=== PATIENT | female | born 1955 | race Caucasian/White ===

== ENCOUNTER 2022-09-09 14:38 | Outpatient (CLI) | payer MEDICARE, OTHER, SELFPAY ==
--- NOTE | 2022-09-09 15:00 | CRLHL7_ITS ---
For Patients: As a result of the Century Cures Act, medical imaging exams and procedure reports are released immediately into your electronic medical record. You may view this report before your referring provider. If you have questions, please contact your health care provider. DXA BONE MINERAL DENSITY STUDY Reason for exam: Asymptomatic menopausal state. Current height (in): 65. Weight (lb): 212. Menopause age: 54. Ethnicity: White. 1. Have you had a previous hip or vertebral fracture? No. 2. Have you had any fractures during your adult life which did not result from significant trauma (e.g., auto accident)? Yes. 3. Did either of your parents have a hip fracture? No. 4. Do you smoke? No. 5. Have you ever taken Glucocorticoids? No. 6. Do you have rheumatoid arthritis? No. 7. Do you have secondary osteoporosis? No. 8. Do you drink 3 or more alcoholic drinks per day? No. 9. Are you being treated for osteoporosis? No. 10. Have you ever taken any of the following medications: Actonel, Evista, Fosamax, Miacalcin, Reclast, Boniva, Forteo, HRT (i.e., estrogen/hormone therapy), Protelos, Prolia, Vitamin D, Calcium, other ??? please specify. ANSWER: Yes, vitamin D and calcium. 11. Do you have any of the following medical conditions: Anorexia or bulimia, asthma or emphysema, end stage renal disease, hyperparathyroidism, any seizure disorders, cancer, inflammatory bowel diseases, hysterectomy, other ??? please specify. ANSWER: No. 12. What was your maximum height (inches)? 65. 13. Do you perform weight bearing exercise regularly? No. 14. Do you regularly consume dairy products? Yes. 15. Do you drink caffeinated beverages? Yes. If female: 16. At what age did your period start? 16. 17. Are you premenopausal? No. 18. How many full-term pregnancies have you had? 2. 19. Have you ever missed your period for more than 6 months in a row (not including or menopause)? No. TECHNIQUE: Bone mineral density study was performed using the [employer]. FINDINGS: The results of the study expressed as bone mineral density (BMD) are as follows: Lumbar spine L1 to L4: BMD: 0.912 g/cm2. T-score: -1.2. Z-score: 0.6 Neck Left: BMD: 0.751 g/cm2. T-score: -0.9. Z-score: 0.7 Right: BMD: 0.779 g/cm2. T-score: -0.6. Z-score: 0.9 Total Left: BMD: 0.880 g/cm2. T-score: -0.5. Z-score: 0.8 Right: BMD: 0.950 g/cm2. T-score: 0.1. Z-score: 1.3 IMPRESSION: Osteopenia. FRAX 10-year Fracture Risk Major Osteoporotic Fracture: 12% Hip Fracture: 0.8% Reported Risk Factors: [place] () Neck BMD=0.751, BMI= 35.3, previous fracture Anthony Parks M.D. Diagnostic/Nuclear Medicine Radiologist [email or web address] RICKIE/[email or web address] goins/Dictated by: Walker Lovett MD @ 09/09/2022 3:41:00 PM (Electronically Signed)
== END 2022-09-09 14:39 | disposition home or self-care (01) ==
PROVIDERS: PCP Family Medicine; Visit Provider Family Medicine
DX: Z78.0 Asymptomatic menopausal state (principal); M85.89 Other specified disorders of bone density and structure, multiple sites
CPT/HCPCS: 77080

== ENCOUNTER 2022-09-18 14:15 | Outpatient (CLI) | payer MEDICARE, OTHER, SELFPAY ==
--- NOTE | 2022-09-18 14:40 | CRLHL7_ITS ---
For Patients: As a result of the Cures Act, medical imaging exams and procedure reports are released immediately into your electronic medical record. You may view this report before your referring provider. If you have questions, please contact your health care provider. BILATERAL SCREENING MAMMOGRAM WITH COMPUTER-AIDED DETECTION AND TOMOSYNTHESIS TECHNIQUE: CC and MLO views were obtained. These mammographic images have been obtained using full-field digital technique. These mammographic images were interpreted with the benefit of computer-aided detection. Breast Tomosynthesis was used in this interpretation. COMPARISON FILM: 08/29/21, 07/05/20, 04/26/19. FINDINGS: There are scattered areas of fibroglandular density IMPRESSION: There is no radiographic evidence for malignancy. ASSESSMENT: BI-RADS Category 1: Negative RECOMMENDATION: Routine screening mammogram in 1 year. A lay language report of this examination will be provided to the patient. Jack Adame M.D. Diagnostic Radiologist [email or web address] PEGGY/[email or web address] / be/Dictated by: Jack Adame MD @ 09/21/2022 8:39:00 AM (Electronically Signed)
== END 2022-09-18 14:16 | disposition home or self-care (01) ==
LOC: MAMMO 14:17
PROVIDERS: PCP Family Medicine; Visit Provider Family Medicine
DX: Z12.31 Encounter for screening mammogram for malignant neoplasm of breast (principal)
CPT/HCPCS: 77063; 77067

== ENCOUNTER 2023-09-01 08:00 | Outpatient (CLI) | payer MEDICARE, OTHER, SELFPAY ==
--- OUTSIDE RECORDS SUMMARY | 2023-09-01 14:11 | XMS_ITS | Clinical Summary ---
Author Organization [facility] [employer] [facility] Address [place], [place] [address] Care Team Providers Care Ensemble Member Name Role Phone Pcp, No Primary Care Provider Unavailabl e Allergies Active Allergy Reactions Criticality Noted Date Comments Valacyclovir Rash 08/30/2006 Medications Medication Sig Dispensed Refills Start Date End Date Status DOXYCYCLINE HYCLATE 20 MG CAP one daily 0 10/12/2007 Active cyclobenzaprine (FLEXERIL) 10 mg tablet Take 1 tablet by mouth 3 times daily if needed for Muscle Spasm. And Migraine 30 tablet 6 08/23/2012 Active aspirin-caffeine- butalbital, 325-40-50 mg, (FIORINAL) capsule .TAKE 1 CAPSULE BY MOUTH EVERY 4 HOURS NEEDED FOR HEADACHE. NOT TO EXCEED 6 CAPSULES PER DAY 30 capsule 1 10/27/2012 Active HYDROcodone-aceta minophen, 5-325 mg, (NORCO) per tablet Take 1-2 tablets by mouth every 4 hours if needed for Pain. Max acetaminophen dose: 4000mg in 24 hrs. 30 tablet 0 03/20/2013 Active nadolol (CORGARD) 40 mg tablet One oral twice daily 60 tablet 11 06/05/2013 Active gabapentin (NEURONTIN) 300 mg capsule Take 1 capsule by mouth once daily. [facility] prescribed 0 07/04/2016 Active cholecalciferol (VITAMIN D-3) 2,000 unit capsule Take 1 capsule by mouth once daily. 0 07/04/2016 Active codeine-guaiFENes in (ROBITUSSIN AC) 10-100 mg/5 mL liquidIndications :Cough Take 5-10 mL by mouth every 4 hours if needed for Cough. 180 mL 1 07/04/2016 Active VENTOLIN HFA 90 mcg/actuation inhaler INHALE ONE PUFF BY MOUTH EVERY 4 HOURS NEEDED 0 07/09/2016 Active Active Problems Problem Noted Date Diagnosed Date Diverticulitis of colon with perforation 013 Pain medication agreement 05/27/2011 Migraine headache 12/09/2009 Esophageal reflux 09/10/2006 Overview: Gastroesophageal Reflux Immunizations Name Administration Dates Next Due Influenza, IIV3 (Age >=3 years) 01/20/2006 Tdap 09/10/2006 Family History Medical History Relation Name Comments Other Daughter ovarian ca and epidymoma Other Mother osteoporosis Relation Name Status Comments Daughter Father Mother Social History Tobacco Use Types Packs/Day Years Used Date Smoking Tobacco: Never Smokeless Tobacco: Never Tobacco Cessation:Counseling Given: Yes Alcohol Use Standard Drinks/Week Comments No 0 (1 standard drink = 0.6 oz pur e alcohol) Sex and Gender Information Value Date Recorded Sex Assigned at Not on file Gender Identity Not on file Sexual Orientation Not on file Obstetrics History Last Filed Vital Signs Vital Sign Reading Time Taken Comments Blood Pressure 104/69 08/10/2016 3:34 PM CDT Pulse 66 08/10/2016 3:34 PM CDT Temperature 36.4 ??C (97.6 ??F) 08/10/2016 3:34 PM CD T Respiratory Rate - - Oxygen Saturation 98% 08/10/2016 3:34 PM CDT Inhaled Oxygen Concentration - - Weight 95.5 kg (210 lb 9.6 oz) 08/10/2016 3:34 P M CDT Height 164 cm (5' 4.57) 08/10/2016 3:34 PM CDT Body Mass Index 35.52 08/10/2016 3:34 PM CDT Plan of Treatment Health Maintenance Due Date Last Done Comments Hepatitis C screening for ag e 18-79 1974 Zoster (shingles) series for age 50+ (1 of 2) 2006 Mammogram for age 45-75 01/30/2015 01/31/20 14, 01/12/2013, 01/12/2013, Additional history exists Tetanus booster 09/10/2016 09/10/2006 Lipids for age 45-75 01/06/2017 01/07/2012, 01/01/2011, 12/04/2008 Depression screening for age 12+ 07/04/2017 07/05/19 17 BMI (ht and wt on same day) for age 18+ 08/10/2017 08/10/2016, 07/13/2016, 07/07/2016, Additional history exists Colonoscopy through age 75 03/05/2019 03/05/2014, DEXA/DXA scan for age 65+ 2021 12/04/2008 Pneumococcal series for age 65+ (1 of 1 - PCV) 2021 COVID-19 vaccine series (1 - 2022-24 season) 2022 Influenza for age 65+ 11/21/2023 01/20/2006 Tdap Completed 09/10/2006 Procedures Procedure Name Priority Date/Time Associated Diagnosis Comments SCAN-COLONOSCOPY 03/05/2014 12:0 0 AM ANESTHETIST SCAN-MAMMOGRAPHY REPORT 01/30/2014 12:00 PM ANESTHETIST LIPID PANEL W REFLEX MEASURED LDL Routine 01/07/2012 7:26 AM CDT Pure hypercholesterolemia XR DXA BONE DENSITY 2 SITES AXIAL Routine 12/04/2008 8:30 AM CDT Screening for Osteoporosis from Last 3 Months or Most Recently Relevant to Health Maintenance Results * SCAN-COLONOSCOPY (03/05/2014 12:00 AM ANESTHETIST) Narrative 03/05/2014 12:00 AM ANESTHETIST Procedure Note Scanner - 03/05/2014 12:00 AM CST Scanner OTHER * SCAN-MAMMOGRAPHY REPORT (01/30/2014 12:00 PM ANESTHETIST) Anatomical Region Laterality Modality Other Narrative 02/01/2014 11:43 AM ANESTHETIST Procedure Note Scanner - 01/30/2014 12:00 PM CST Scanner OTHER * (ABNORMAL) LIPID PANEL W REFLEX MEASURED LDL (01/07/2012 7:26 AM CDT) CHOLESTEROL,TOTAL 221(H) 100 - 199 mg/dL 01/07/2012 8:14 AM CDT [facility] TRIGLYCERIDES 189(H) <150 mg/dL 01/07/2012 8:14 AM CDT [facility] HDL CHOLESTEROL 39(L) >40 mg/dL 2 8:14 AM CDT [facility] CHOL/HDL RATIO 5.67(H) <4.50 01/07/2012 8:14 AM CDT [facility] LDL CHOLESTEROL 144(H) <=130 mg/dL 01/07/2012 8:14 AM CDT [facility] PATIENT STATUS FASTING 01/07/2012 8:14 AM CDT [facility] Blood specimen (specimen) BLOOD SPECIMEN / Unknown 01/07/2012 7:26 AM CDT 01/07/2012 7:26 AM CDT Jack Suresh MD CHEMISTRY [facility] [address] [place] [address] * XR DEXA BONE DENSITY 2 SITES (12/04/2008 8:30 AM CDT) Anatomical Region Laterality Modality Spine, HIPS, HIPL, HIPR Other 12/04/2008 8:30 AM CDT Narrative 12/07/2008 7:08 PM CDT Please see scanned document for results of this study. Procedure Note Bere Truong - 12/08/2008 Please see scanned document for results of this study. Jack Suresh MD DEXA from Last 3 Months or Most Recently Relevant to Health Maintenance Care Teams Ensemble Member Relationship Specialty Start Date End Date Pcp, No . PCP - General 08/12/20
== END 2023-09-01 08:01 | disposition home or self-care (01) ==
LOC: NFLDREF 14:10
PROVIDERS: PCP Family Medicine; Referring Provider Family Medicine; Visit Provider Family Medicine
DX: Z01.419 Encounter for gynecological examination (general) (routine) without abnormal findings (principal); E78.5 Hyperlipidemia, unspecified; R79.89 Other specified abnormal findings of blood chemistry; R73.03 Prediabetes; R68.82 Decreased libido; R74.01 Elevation of levels of liver transaminase levels; M81.0 Age-related osteoporosis without current pathological fracture; R53.83 Other fatigue
CPT/HCPCS: 80053; 80061; 80074; 82306; 82977

== ENCOUNTER 2023-09-08 07:50 | Outpatient (CLI) | payer MEDICARE, OTHER, SELFPAY ==
--- OUTSIDE RECORDS SUMMARY | 2023-09-08 07:53 | XMS_ITS | Clinical Summary ---
Author Organization [facility] [facility] Address [place], [place] [address] Care Team Providers Care Courier Delivery Driver Name Role Phone Pcp, No Primary Care [...] Diagnosis Comments SCAN-COLONOSCOPY 03/05/2014 12:0 0 AM DRY BOX OPERATOR SCAN-MAMMOGRAPHY REPORT 01/30/2014 12:00 PM DRY BOX OPERATOR LIPID PANEL W REFLEX MEASURED LDL Routine 01/07/2012 7:26 AM CDT Pure hypercholesterolemia XR DXA BONE DENSITY 2 SITES AXIAL Routine 12/04/2008 8:30 AM CDT Screening for Osteoporosis from Last 3 Months or Most Recently Relevant to Health Maintenance Results * SCAN-COLONOSCOPY (03/05/2014 12:00 AM DRY BOX OPERATOR) Narrative 03/05/2014 12:00 AM DRY BOX OPERATOR Procedure Note Scanner - 03/05/2014 12:00 AM CST Scanner OTHER * SCAN-MAMMOGRAPHY REPORT (01/30/2014 12:00 PM DRY BOX OPERATOR) Anatomical Region Laterality Modality Other Narrative 02/01/2014 11:43 AM DRY BOX OPERATOR Procedure Note Scanner - 01/30/2014 12:00 PM CST Scanner OTHER * (ABNORMAL) LIPID PANEL W REFLEX MEASURED LDL (01/07/2012 7:26 AM CDT) CHOLESTEROL,TOTAL 221(H) 100 - 199 mg/dL 01/07/2012 8:14 AM CDT [facility] TRIGLYCERIDES 189(H) <150 mg/dL 01/07/2012 8:14 AM CDT [facility] HDL CHOLESTEROL 39(L) >40 mg/dL 2 8:14 AM CDT [facility] CHOL/HDL RATIO 5.67(H) <4.50 01/07/2012 8:14 AM CDT [facility] LDL CHOLESTEROL 144(H) <=130 mg/dL 01/07/2012 8:14 AM CDT [facility] PATIENT STATUS FASTING 01/07/2012 8:14 AM CDT [facility] Blood specimen (specimen) BLOOD SPECIMEN / Unknown 01/07/2012 7:26 AM CDT 01/07/2012 7:26 AM CDT Jack Suresh MD CHEMISTRY [facility] [address] [place] [address] * XR DEXA BONE DENSITY 2 SITES [...] Recently Relevant to Health Maintenance Care Teams Courier Delivery Driver Relationship Specialty Start Date End Date Pcp, No . PCP - General 08/12/20
== END 2023-09-08 07:51 | disposition home or self-care (01) ==
PROVIDERS: PCP Family Medicine; Visit Provider Family Medicine
DX: R74.01 Elevation of levels of liver transaminase levels (principal); R53.83 Other fatigue; Z13.29 Encounter for screening for other suspected endocrine disorder
CPT/HCPCS: 80053; 84443

== ENCOUNTER 2023-10-06 13:50 | Outpatient (CLI) | payer MEDICARE, OTHER, SELFPAY ==
--- OUTSIDE RECORDS SUMMARY | 2023-10-06 13:53 | XMS_ITS | Clinical Summary ---
Author Organization [facility] Address [place], [place] [address] Care Team Providers Care Bottomer Operator Name Role Phone Pcp, No Primary Care [...] 12/09/2009 Esophageal reflux 09/10/2006 Overview: Gastroesophageal Reflux Encounters Date Type Department Care Team Description 09/29/2023 Lab Requisition [facility] [phone] Anita Wayne MD 09/08/2023 Lab Requisition [facility] [phone] Jessica Miller MD from Last 3 Months Immunizations Name Administration Dates Next Due Influenza, [...] 1 - PCV) 2021 COVID-19 vaccine series ( - 2022- season) 2022 Influenza for age 65+ 11/21/2023 01/20/2006 Tdap Completed 09/10/2006 Procedures Procedure Name Priority Date/Time Associated Diagnosis Comments LAB TRACKING EVENT Routine 09/28/2023 12:00 PM CDT PATH TISSUE EXAM Routine 09/28/2023 12:0 0 PM CDT LAB TRACKING EVENT Routine 09/08/2023 8:00 AM CDT SQL SERVER CONSULTANT THIN PREP PAP SCREEN IMAGED Routine 09/08/2023 8:00 AM CDT HPV THIN PREP Routine 09/08/2023 8:00 AM CDT SCAN-COLONOSCOPY 03/05/2014 12:0 0 AM HAND CANDY MOLDER SCAN-MAMMOGRAPHY REPORT 01/30/2014 12:00 PM HAND CANDY MOLDER LIPID PANEL W REFLEX MEASURED LDL Routine 01/07/2012 7:26 AM CDT Pure hypercholesterolemia XR DXA BONE DENSITY 2 SITES AXIAL Routine 12/04/2008 8:30 AM CDT Screening for Osteoporosis from Last 3 Months or Most Recently Relevant to Health Maintenance Results * LAB TRACKING EVENT (09/28/2023 12:00 PM CDT) Only the most recent of2 resultswithin the time period is included. Other (Other) Client Collect / Unknown 09/28/2023 12:00 PM CDT 09/29/2023 3:44 PM CDT Anita Wayne MD LAB BILL ONLY [facility]AL LABORATORY [address] [place] [address], * PATH TISSUE EXAM (09/28/2023 12:00 PM CDT) Case Report Pathology Report ?Case: [id number] ? Authorizing Provider: ??Anita Wayne MD ?? Collected: ? 09/28/2023 1200 ? Ordering Location: ? [facility] ?Received: ?09/29/2023 181 ? Pathologist: ? Verna Schrader MD ? Specimens: ?? A) - Cervical Biopsy ? B) - Cervical Biopsy ? C) - Cervical Biopsy ? D) - Endocervical Curettings ? E) - Vulvar Biopsy ? 2023 6:37 PM CDT [facility] LABORAT[facility]-C ENTRAL LABORATORY Final Diagnosis A) CERVIX, BIOPSY: 1. Focal squamous atypia suggestive of, but not definitively diagnostic for, low grade squamous intraepithelial lesion (FRANCO 1) ?? a. Sampling: Ectocervix ?? b. Transformation zone: Not visualized 2. Negative for glandular neoplasia, high grade squamous intraepithelial lesion, and malignancy B) CERVIX, BIOPSY: 1. Focal squamous atypia suggestive of, but not definitively diagnostic for, low grade squamous intraepithelial lesion (FRANCO 1) ?? a. Sampling: Ectocervix ?? b. Transformation zone: Not visualized 2. Negative for glandular neoplasia, high grade squamous intraepithelial lesion, and malignancy C) CERVIX, BIOPSY: 1. Low grade squamous intraepithelial lesion (FRANCO 1) ?? a. Sampling: Ectocervix ?? b. Transformation zone: Not visualized 2. Negative for glandular neoplasia, high grade squamous intraepithelial lesion, and malignancy D) ENDOCERVIX, CURETTAGE: 1. Focal squamous atypia suggestive of, but not definitively diagnostic for, low grade squamous intraepithelial lesion (FRANCO 1) 2. Scant fragments of unremarkable endocervical epithelium 3. Negative for glandular neoplasia, high grade squamous intraepithelial lesion, and malignancy E) VULVA, BIOPSY: 1. Lichenoid dermatitis with superimposed atypia, see comment 2. PAS-D stain is negative for fungal organisms 3. Negative for malignancy 2023 6:37 PM CDT [facility] Comment A-D) The patient's prior Pap test ([id number]; 09/08/23) was diagnosed as negative for intraepithelial lesion or malignancy (NIL) but HR-HPV testing was positive for HR-HPV other (non-16/18) subtype(s). E) The differential diagnosis for lichenoid dermatitis includes early lichen sclerosus, lichen planus, lichenoid drug reaction, or lichenoid keratosis. In this case, the biopsy also shows superimposed atypia for which the differential primarily includes superimposed reactive changes versus an evolving HPV-independent vulvar intraepithelial neoplasia. Ultimately, continued close clinical follow-up is recommended. If the lesion persists following treatment, repeat biopsy or conservative excision could be considered. Dr. Schrader discussed the vulvar biopsy results with Dr. Wayne on 10/01/23 at 16:50. Select H&E stained section from part E also reviewed by Dr. Zhang. 2023 6:37 PM CDT [facility] [employer] LABORAT[facility] Clinical Information NILM pap, HR-HPV positive. 2023 6:37 PM CDT [facility] [employer] [facility] Gross Description A) Received in formalin, labeled with the patient's name and A, is a single stoner mucosal fragment measuring 0.3 cm. The specimen is submitted in toto in one cassette. B) Received in formalin, labeled with the patient's name and B, is a single stoner mucosal fragment measuring 0.5 cm. The specimen is submitted in toto in one cassette. C) Received in formalin, labeled with the patient's name and C, is a single stoner mucosal fragment measuring 0.2 cm. The specimen is submitted in toto in one cassette. D) Received in formalin, labeled with the patient's name and D, is a 2.5 x 0.9 x 0.2 cm aggregate of pink-stoner mucosa admixed with clotted blood and mucous. The specimen is entirely submitted in 1 cassette. E) Received in formalin, labeled with the patient's name and E, is an aggregate of stoner-brown tissue fragments measuring 1.2 x 0.3 x 0.2 cm. The specimen is submitted in toto in one cassette. [facility] 09/29/2023 2023 6:37 PM CDT [facility] [employer] [facility] ENTRAL LABORATORY Microscopic Description The final diagnosis is based on microscopic examination of appropriate sections of all specimens. B, D) A p16 immunostain was performed on parts B and D to assist in evaluation. The p16 immunostains are both negative for diffuse expression. E) A p53 and p16 immunostain were performed on part E to assist in evaluation. The p53 demonstrates a non-aberrant wild-type pattern of expression. The p16 immunostain is negative for diffuse expression. 2023 6:37 PM CDT [facility] [employer] LABORATORY-[facility] Additional Information Interpreted at [facility], Central Laboratory - [address] [place] [address] [address] [place] [phone] Immunohistochemist ry controls were reviewed and approved by the pathologist during this examination. 2023 6:37 PM CDT [facility] LAB[facility]AT[facility] Other (Cervical Biopsy) 09/28/2023 12:00 PM CDT 09/29/2023 6:17 PM CDT Specimen (specimen) (Cervical Biopsy) 09/29/2023 12:00 PM CDT 09/29/2023 6:17 PM CDT Specimen (specimen) (Cervical Biopsy) 09/29/2023 12:00 PM CDT 09/29/2023 6:17 PM CDT Specimen (specimen) (Endocervical Curettings) 09/29/2023 12:00 PM CDT 09/29/2023 6:17 PM CDT Specimen (specimen) (Vulvar Biopsy) 09/29/2023 12:00 PM CDT 09/29/2023 6:17 PM CDT Anita Wayne MD PATHOLOGY/CYTOLOG Y [facility] LABORATORY-CENTRAL LABORATORY [address] [place] [address], * SQL SERVER CONSULTANT THIN PREP PAP SCREEN IMAGED (09/08/2023 8:00 AM CDT) Case Report Gynecologic Cytology Report ? Case: [id number] ? Authorizing Provider: ??Jessica Miller MD ??Collected: ? 09/08/2023 0800 ? Ordering Location: ? [facility] ?Received: ?09/09/2023 1231 ? First Screen: ?Baccam, Minie ? Rescreen: ?Nando Villalobos ? Specimen: ?SQL SERVER CONSULTANT ThinPrep Vial Screening, Cervical/Vaginal ? 09/19/2023 8:45 AM CDT [facility] LABORATORY-C ENTRAL LABORATORY INTERPRETATION/ RESULT NEGATIVE FOR INTRAEPITHELIAL LESION OR MALIGNANCY (NIL) (none) 09/19/2023 8:45 AM CDT [facility] LAB[facility] IMEN ADEQUACY Satisfactory for evaluation Endocervical component present 09/19/2023 8:45 AM CDT [facility] ENTRAL LABORATORY HPV REQUEST HPV and PAP 09/19/2023 8:45 AM CDT [facility] ENTRAL LABORATORY Date of LMP 09/19/2023 8:45 AM CDT [facility] ENTRAL LABORATORY Comment:Unknown Last Pap Date 09/02/2022 09/19/2023 8:45 AM CDT [facility] Last Pap Result ASCUS 8:45 AM CDT [facility] Menstrual Status Postmenopausal 09/19/2023 8:45 AM CDT [facility] [place] Bx Done Today No 09/19/2023 8:45 AM CDT [facility] Additional Information 09/19/2023 8:45 AM CDT [facility] Comment: Interpreted at [facility], Central Laboratory - [address], [place] [address] Automated Review Successful 09/19/2023 8:45 AM CDT [facility] LAB[facility] Comment:Specimen processed s uccessfully by automated tents assembler device, ThinPrep Imaging System, [employer] ANCILLARY TESTING SQL SERVER CONSULTANT HPV Ordered, Please see separate report 09/19/2023 8:45 AM CDT [facility] Note The pap test is a screening technique, not a diagnostic procedure. It is used primarily to screen for squamous cancers and precursor lesions. Published studies have shown that it is subject to both false negative and false positive results. The pap test should not be used as the sole means to diagnose or exclude pre-malignant and malignant lesions. 09/19/2023 8:45 AM CDT [facility] Other (Cervical/Vagina l) 09/08/2023 8:00 AM CDT 09/09/2023 12:31 PM CDT Jessica Clotilde Hernberg MD PATHOLOGY/CYTOLO GY Performing Organization Address [facility] Co de Phone Number [facility] [address] [place] [address] * (ABNORMAL) HPV HIGH RISK (09/08/2023 8:00 AM CDT) TYPE 16 Negative Negative 09/10/2023 4:12 PM CDT [facility] TRAL LABORATORY TYPE 18 Negative Negative 09/10/2023 4:12 PM CDT [facility] TRAL LABORATORY OTHER HIGH RISK TYPES Positive(A) Negative 09/10/2023 4:12 PM CDT [facility] TRA LABORATORY Other (Cervical/Vagina l) 09/08/2023 8:00 AM CDT 09/09/2023 12:31 PM CDT Narrative [facility] - 09/10/2023 4:12 PM CDT Specimen is positive for the DNA of any one of, or combination of, the following high risk HPV types: 31, 33, 35, 39, 45, 51, 52, 56, 58, 59, 66, 68. HPV types 16 and 18 DNA were undetectable or below the pre-set threshold. ? Methodology: Rafael [employer] 4800 HPV Test Jessica Miller MD MICROBIOLOGY Performing Organization Address [facility] Co de Phone Number [facility] [address] [place] [address], * SCAN-COLONOSCOPY (03/05/2014 12:00 AM HAND CANDY MOLDER) Narrative 03/05/2014 12:00 AM HAND CANDY MOLDER Procedure Note Scanner - 03/05/2014 12:00 AM CST Scanner OTHER * SCAN-MAMMOGRAPHY REPORT (01/30/2014 12:00 PM HAND CANDY MOLDER) Anatomical Region Laterality Modality Other Narrative 02/01/2014 11:43 AM HAND CANDY MOLDER Procedure Note Scanner - 01/30/2014 12:00 PM CST Scanner OTHER * (ABNORMAL) LIPID PANEL W REFLEX MEASURED LDL (01/07/2012 7:26 AM CDT) CHOLESTEROL,TOTAL 221(H) 100 - 199 mg/dL 01/07/2012 8:14 AM CDT [facility] TRIGLYCERIDES 189(H) <150 mg/dL 01/07/2012 8:14 AM CDT [facility] HDL CHOLESTEROL 39(L) >40 mg/dL 2 8:14 AM CDT [facility] CHOL/HDL RATIO 5.67(H) <4.50 01/07/2012 8:14 AM CDT [facility] LDL CHOLESTEROL 144(H) <=130 mg/dL 01/07/2012 8:14 AM CDT [facility] PATIENT STATUS FASTING 01/07/2012 8:14 AM CDT [facility] Blood specimen (specimen) BLOOD SPECIMEN / Unknown 01/07/2012 7:26 AM CDT 01/07/2012 7:26 AM CDT Jack Suresh MD CHEMISTRY [facility] [address] [place] [address] * XR DEXA BONE DENSITY 2 SITES [...] Recently Relevant to Health Maintenance Care Teams Bottomer Operator Relationship Specialty Start Date End Date Pcp, No . PCP - General 08/12/20
--- NOTE | 2023-10-06 14:00 | CRLHL7_ITS ---
For Patients: As a result of the Cures Act, medical imaging exams and procedure reports are released immediately into your electronic medical record. You may view this report before your referring provider. If you have questions, please contact your health care provider. BILATERAL SCREENING MAMMOGRAM WITH COMPUTER-AIDED DETECTION AND TOMOSYNTHESIS TECHNIQUE: CC and MLO views were obtained. These mammographic images have been obtained using full-field digital technique. These mammographic images were interpreted with the benefit of computer-aided detection. Breast Tomosynthesis was used in this interpretation. COMPARISON FILM: 09/18/22, 08/29/21, 07/05/20. FINDINGS: There are scattered areas of fibroglandular density IMPRESSION: There is no radiographic evidence for malignancy. ASSESSMENT: BI-RADS Category 1: Negative RECOMMENDATION: Routine screening mammogram in 1 year. A lay language report of this examination will be provided to the patient. Jack Adame M.D. Diagnostic Radiologist [email or web address] Transcribed: 3:01 p.kevin goins/Dictated by: Jack Adame MD @ 10/07/2023 1:01:00 PM (Electronically Signed)
== END 2023-10-06 13:51 | disposition home or self-care (01) ==
LOC: MAMMO 13:52
PROVIDERS: PCP Family Medicine; Visit Provider Family Medicine
DX: Z12.31 Encounter for screening mammogram for malignant neoplasm of breast (principal)
CPT/HCPCS: 77063; 77067

== ENCOUNTER 2023-10-25 11:38 | Outpatient (CLI) | payer MEDICARE, OTHER, SELFPAY ==
--- OUTSIDE RECORDS SUMMARY | 2023-10-26 13:46 | XMS_ITS | Clinical Summary ---
Author Organization [facility] Address [place], [place] [address] Care Team Providers Care Veterinarian Name Role Phone Pcp, No Primary Care [...] Department Care Team Description 09/29/2023 Lab Requisition [facility] [phone] Anita Wayne MD 09/08/2023 Lab Requisition [facility] [phone] Jessica Miller MD from Last 3 Months [...] TRACKING EVENT Routine 09/08/2023 8:00 AM CDT COURIER DRIVER THIN PREP PAP SCREEN IMAGED Routine 09/08/2023 8:00 AM CDT HPV THIN PREP Routine 09/08/2023 8:00 AM CDT SCAN-COLONOSCOPY 03/05/2014 12:0 0 AM GUIDE DOG MOBILITY INSTRUCTOR SCAN-MAMMOGRAPHY REPORT 01/30/2014 12:00 PM GUIDE DOG MOBILITY INSTRUCTOR LIPID PANEL W REFLEX MEASURED LDL Routine [...] CDT Anita Wayne MD LAB BILL ONLY [facility] LABORATORY-CENTRAL LABORATORY [address] [place] [address], * PATH TISSUE EXAM (09/28/2023 12:00 PM CDT) Case Report Pathology Report ?Case: [id number] ? Authorizing Provider: ??Anita Wayne MD ?? Collected: ? 09/28/2023 1200 ? Ordering Location: ? [facility] ?Received: ?09/29/2023 181 ? Pathologist: ? Verna Schrader MD ? Specimens: ?? A) - Cervical Biopsy ? B) - Cervical Biopsy ? C) - Cervical Biopsy ? D) - Endocervical Curettings ? E) - Vulvar Biopsy ? 2023 6:37 PM CDT [facility] LABORAT[facility]-C ENTRAL LABORATORY Final Diagnosis A) CERVIX, [...] Negative for malignancy 2023 6:37 PM CDT [facility] Comment A-D) The patient's prior Pap test ([id number]; 09/08/23) was diagnosed as negative for intraepithelial [...] by Dr. Zhang. 2023 6:37 PM CDT [facility] [place] [facility] Clinical Information NILM pap, HR-HPV positive. 2023 6:37 PM CDT [facility] [employer] [facility] LABORATORY Gross Description A) Received in formalin, [...] is submitted in toto in one cassette. [facility] 09/29/2023 2023 6:37 PM CDT [facility] [employer] [facility] ENTRAL LABORATORY Microscopic Description The final [...] for diffuse expression. 2023 6:37 PM CDT [facility] [employer] LABORATORY-[facility] Additional Information Interpreted at [facility], Central Laboratory - [address] [place] [address] [address] [place] [phone] Immunohistochemist ry controls were reviewed and approved by the pathologist during this examination. 2023 6:37 PM CDT [facility] EN[facility]PA LABORATORY Other (Cervical Biopsy) 09/28/2023 12:00 PM [...] PM CDT Anita Wayne MD PATHOLOGY/CYTOLOG Y [facility] LABORATORY-CENTRAL LABORATORY [address] [place] [address], * COURIER DRIVER THIN PREP PAP SCREEN IMAGED (09/08/2023 8:00 AM CDT) Case Report Gynecologic Cytology Report ? Case: [id number] ? Authorizing Provider: ??Jessica Miller MD ??Collected: ? 09/08/2023 0800 ? Ordering Location: ? [facility] ?Received: ?09/09/2023 1231 ? First Screen: ?Baccam, Minie ? Rescreen: ?Nando Villalobos ? Specimen: ?COURIER DRIVER ThinPrep Vial Screening, Cervical/Vaginal ? 09/19/2023 8:45 AM CDT [facility]AT[facility]-C ENTRAL LABORATORY INTERPRETATION/ RESULT NEGATIVE FOR INTRAEPITHELIAL LESION OR MALIGNANCY (NIL) (none) 09/19/2023 8:45 AM CDT [facility] LABORATORY IMEN ADEQUACY Satisfactory for evaluation Endocervical component present 09/19/2023 8:45 AM CDT [facility] ENTRAL LABORATORY HPV REQUEST HPV and PAP 09/19/2023 8:45 AM CDT [facility] ENTRAL LABORATORY Date of LMP 09/19/2023 8:45 AM CDT [facility] ENTRAL LABORATORY Comment:Unknown Last Pap Date 09/02/2022 09/19/2023 8:45 AM CDT [facility] Last Pap Result ASCUS 8:45 AM CDT [facility] Menstrual Status Postmenopausal 09/19/2023 8:45 AM CDT [facility] [place] Bx Done Today No 09/19/2023 8:45 AM CDT [facility] Additional Information 09/19/2023 8:45 AM CDT [facility] LABORAT[facility] Comment: Interpreted at [facility], Central Laboratory - [address], [place] [address] Automated Review Successful 09/19/2023 8:45 AM CDT [facility] LABORAT[facility] Comment:Specimen processed s uccessfully by automated apparel sales leader device, ThinPrep Imaging System, [employer] ANCILLARY TESTING COURIER DRIVER HPV Ordered, Please see separate report 09/19/2023 8:45 AM CDT [facility] Note The pap test is [...] and malignant lesions. 09/19/2023 8:45 AM CDT [facility] Other (Cervical/Vagina l) 09/08/2023 8:00 AM CDT 09/09/2023 12:31 PM CDT Jessica Clotilde Hernberg MD PATHOLOGY/CYTOLO GY Performing Organization Address [facility] Co de Phone Number [facility] [address] [place] [address] * (ABNORMAL) HPV HIGH RISK (09/08/2023 8:00 AM CDT) TYPE 16 Negative Negative 09/10/2023 4:12 PM CDT [facility] LABORATORY-[facility] TRAL LABORATORY TYPE 18 Negative Negative 09/10/2023 4:12 PM CDT [facility] TRAL LABORATORY OTHER HIGH RISK TYPES Positive(A) Negative 09/10/2023 4:12 PM CDT [facility] TRA LABORATORY Other (Cervical/Vagina l) 09/08/2023 8:00 AM CDT 09/09/2023 12:31 PM CDT Narrative [facility] - 09/10/2023 4:12 PM [...] Jessica Miller MD MICROBIOLOGY Performing Organization Address [facility] Co de Phone Number [facility] [address] [place] [address], * SCAN-COLONOSCOPY (03/05/2014 12:00 AM GUIDE DOG MOBILITY INSTRUCTOR) Narrative 03/05/2014 12:00 AM GUIDE DOG MOBILITY INSTRUCTOR Procedure Note Scanner - 03/05/2014 12:00 AM CST Scanner OTHER * SCAN-MAMMOGRAPHY REPORT (01/30/2014 12:00 PM GUIDE DOG MOBILITY INSTRUCTOR) Anatomical Region Laterality Modality Other Narrative 02/01/2014 11:43 AM GUIDE DOG MOBILITY INSTRUCTOR Procedure Note Scanner - 01/30/2014 12:00 PM CST Scanner OTHER * (ABNORMAL) LIPID PANEL W REFLEX MEASURED LDL (01/07/2012 7:26 AM CDT) CHOLESTEROL,TOTAL 221(H) 100 - 199 mg/dL 01/07/2012 8:14 AM CDT [facility] TRIGLYCERIDES 189(H) <150 mg/dL 01/07/2012 8:14 AM CDT [facility] HDL CHOLESTEROL 39(L) >40 mg/dL 2 8:14 AM CDT [facility] CHOL/HDL RATIO 5.67(H) <4.50 01/07/2012 8:14 AM CDT [facility] LDL CHOLESTEROL 144(H) <=130 mg/dL 01/07/2012 8:14 AM CDT [facility] PATIENT STATUS FASTING 01/07/2012 8:14 AM CDT [facility] Blood specimen (specimen) BLOOD SPECIMEN / Unknown 01/07/2012 7:26 AM CDT 01/07/2012 7:26 AM CDT Jack Suresh MD CHEMISTRY [facility] [address] [place] [address] * XR DEXA BONE DENSITY 2 SITES [...] Recently Relevant to Health Maintenance Care Teams Veterinarian Relationship Specialty Start Date End Date Pcp, No . PCP - General 08/12/20
== END 2023-10-25 11:39 | disposition home or self-care (01) ==
LOC: NFLDREF 10-26 13:45
PROVIDERS: PCP Family Medicine; Referring Provider Family Medicine; Visit Provider Obstetrics & Gynecology
DX: N39.0 Urinary tract infection, site not specified (principal)
CPT/HCPCS: 87086

== ENCOUNTER 2023-11-10 09:57 | Outpatient (CLI) | payer MEDICARE, OTHER, SELFPAY ==
--- OUTSIDE RECORDS SUMMARY | 2023-11-10 16:11 | XMS_ITS | Clinical Summary ---
Author Organization [email or web address] [facility] [employer] Address [place], [place] [address] Care Team Providers Care Document Control Manager Name Role Phone Pcp, No Primary Care [...] Department Care Team Description 09/29/2023 Lab Requisition [facility] [phone] Anita Wayne MD 09/08/2023 Lab Requisition [facility] [phone] Jessica Miller MD from Last 3 Months [...] TRACKING EVENT Routine 09/08/2023 8:00 AM CDT GUIDANCE SERVICES COORDINATOR THIN PREP PAP SCREEN IMAGED Routine 09/08/2023 8:00 AM CDT HPV THIN PREP Routine 09/08/2023 8:00 AM CDT SCAN-COLONOSCOPY 03/05/2014 12:0 0 AM [facility] SCAN-MAMMOGRAPHY REPORT 01/30/2014 12:00 PM [facility] LIPID PANEL W REFLEX MEASURED LDL Routine [...] CDT Anita Wayne MD LAB BILL ONLY [facility] [address] [place] [address], * PATH TISSUE EXAM (09/28/2023 12:00 PM CDT) Case Report Pathology Report ?Case: [id number] ? Authorizing Provider: ??Anita Wayne MD ?? Collected: ? 09/28/2023 1200 ? Ordering Location: ? [facility] ?Received: ?09/29/2023 181 ? Pathologist: ? Verna Schrader MD ? Specimens: ?? A) - Cervical Biopsy ? B) - Cervical Biopsy ? C) - Cervical Biopsy ? D) - Endocervical Curettings ? E) - Vulvar Biopsy ? 2023 6:37 PM CDT [facility] Final Diagnosis A) CERVIX, [...] Negative for malignancy 2023 6:37 PM CDT [facility] Comment A-D) The patient's prior Pap test ([id number]; 09/08/23) was diagnosed as negative for intraepithelial [...] by Dr. Zhang. 2023 6:37 PM CDT [facility] Clinical Information NILM pap, HR-HPV positive. 2023 6:37 PM CDT [facility] Gross Description A) Received in formalin, [...] is submitted in toto in one cassette. [facility] 09/29/2023 2023 6:37 PM CDT [facility] upad [facility] ENTRAL LABORATORY Microscopic Description The final [...] 2023 6:37 PM CDT [facility] upad LABORATORY-[facility] Additional Information Interpreted at [facility], Central Laboratory - [address] [place] [address] [address] [place] [id number] Immunohistochemist ry controls were reviewed and approved by the pathologist during this examination. 2023 6:37 PM CDT [facility] Other (Cervical Biopsy) 09/28/2023 12:00 PM [...] PM CDT Anita Wayne MD PATHOLOGY/CYTOLOG Y [facility] [address] [place] [address], * GUIDANCE SERVICES COORDINATOR THIN PREP PAP SCREEN IMAGED (09/08/2023 8:00 AM CDT) Case Report Gynecologic Cytology Report ? Case: [id number] ? Authorizing Provider: ??Jessica Miller MD ??Collected: ? 09/08/2023 0800 ? Ordering Location: ? [facility] ?Received: ?09/09/2023 1231 ? First Screen: ?Baccam, Minie ? Rescreen: ?Nando Villalobos ? Specimen: ?GUIDANCE SERVICES COORDINATOR ThinPrep Vial Screening, Cervical/Vaginal ? 09/19/2023 8:45 AM CDT [facility]AL [facility] INTERPRETATION/ RESULT NEGATIVE FOR INTRAEPITHELIAL LESION OR MALIGNANCY (NIL) (none) 09/19/2023 8:45 AM CDT [facility] IMEN ADEQUACY Satisfactory for evaluation Endocervical component present 09/19/2023 8:45 AM CDT [facility] HPV REQUEST HPV and PAP 09/19/2023 8:45 AM CDT [facility] Date of LMP 09/19/2023 8:45 AM CDT [facility] Comment:Unknown Last Pap Date 09/02/2022 09/19/2023 8:45 AM CDT [facility] Last Pap Result ASCUS 8:45 AM CDT [facility] Menstrual Status Postmenopausal 09/19/2023 8:45 AM CDT [facility] [place] Bx Done Today No 09/19/2023 8:45 AM CDT [facility] Additional Information 09/19/2023 8:45 AM CDT [facility] Comment: Interpreted at [facility] Central Laboratory - [address], [place] [address] Automated Review Successful 09/19/2023 8:45 AM CDT [facility] Comment:Specimen processed s uccessfully by automated fruit culler device, ThinPrep Imaging System, [employer] ANCILLARY TESTING GUIDANCE SERVICES COORDINATOR HPV Ordered, Please see separate report 09/19/2023 8:45 AM CDT [facility] Note The pap test is a [...] and malignant lesions. 09/19/2023 8:45 AM CDT [facility] Other (Cervical/Vagina l) 09/08/2023 8:00 AM CDT 09/09/2023 12:31 PM CDT Jessica Clotilde Hernberg MD PATHOLOGY/CYTOLO GY Performing Organization Address [facility] Co de Phone Number [facility] [address] [place] [address] * (ABNORMAL) HPV HIGH RISK (09/08/2023 8:00 AM CDT) TYPE 16 Negative Negative 09/10/2023 4:12 PM CDT [facility] TRAL LABORATORY TYPE 18 Negative Negative 09/10/2023 4:12 PM CDT [facility] TRAL LABORATORY OTHER HIGH RISK TYPES Positive(A) Negative 09/10/2023 4:12 PM CDT [facility] TRA [facility]ORAT[facility] Other (Cervical/Vagina l) 09/08/2023 8:00 AM CDT 09/09/2023 12:31 PM CDT Narrative [facility] - 09/10/2023 4:12 PM CDT [...] Jessica Miller MD MICROBIOLOGY Performing Organization Address [facility] Co de Phone Number [facility] [address] [place] [address], * SCAN-COLONOSCOPY (03/05/2014 12:00 AM [facility]INK [facility]AT) Narrative 03/05/2014 12:00 AM RINK RAT Procedure Note Scanner - 03/05/2014 12:00 AM CST Scanner OTHER * SCAN-MAMMOGRAPHY REPORT (01/30/2014 12:00 PM RINK RAT) Anatomical Region Laterality Modality Other Narrative 02/01/2014 11:43 AM RINK RAT Procedure Note Scanner - 01/30/2014 12:00 PM CST Scanner OTHER * (ABNORMAL) LIPID PANEL W REFLEX MEASURED LDL (01/07/2012 7:26 AM CDT) CHOLESTEROL,TOTAL 221(H) 100 - 199 mg/dL 01/07/2012 8:14 AM CDT [facility] TRIGLYCERIDES 189(H) <150 mg/dL 01/07/2012 8:14 AM CDT [facility] HDL CHOLESTEROL 39(L) >40 mg/dL 2 8:14 AM CDT [facility] CHOL/HDL RATIO 5.67(H) <4.50 01/07/2012 8:14 AM CDT [facility] LDL CHOLESTEROL 144(H) <=130 mg/dL 01/07/2012 8:14 AM CDT [facility] PATIENT STATUS FASTING 01/07/2012 8:14 AM CDT [facility] Blood specimen (specimen) BLOOD SPECIMEN / Unknown 01/07/2012 7:26 AM CDT 01/07/2012 7:26 AM CDT Jack Suresh MD CHEMISTRY [facility] [address] [place] [address] * XR DEXA BONE DENSITY 2 SITES [...] Recently Relevant to Health Maintenance Care Teams Document Control Manager Relationship Specialty Start Date End Date Pcp, No . PCP - General 08/12/20
== END 2023-11-10 09:58 | disposition home or self-care (01) ==
LOC: NFLDREF 16:10
PROVIDERS: PCP Family Medicine; Referring Provider Family Medicine; Visit Provider Family Medicine
DX: I10 Essential (primary) hypertension (principal)
CPT/HCPCS: 80048

== ENCOUNTER 2024-01-03 11:53 | Outpatient (CLI) | payer MEDICARE, OTHER, SELFPAY | END 2024-01-03 11:54 | disposition home or self-care (01) | PROVIDERS: PCP Family Medicine; Visit Provider Obstetrics & Gynecology | DX: N88.9 Noninflammatory disorder of cervix uteri, unspecified (principal) | CPT/HCPCS: 80053 ==

== ENCOUNTER 2024-09-12 09:15 | Outpatient (CLI) | payer MEDICARE, OTHER, SELFPAY | END 2024-09-12 09:16 | disposition home or self-care (01) | LOC: NFLDREF 09-14 17:51 | PROVIDERS: PCP Family Medicine; Referring Provider Family Medicine; Visit Provider Family Medicine | DX: E78.5 Hyperlipidemia, unspecified (principal); R74.01 Elevation of levels of liver transaminase levels; R73.03 Prediabetes; I10 Essential (primary) hypertension; M85.851 Other specified disorders of bone density and structure, right thigh; M81.0 Age-related osteoporosis without current pathological fracture | CPT/HCPCS: 80053; 80061; 82306 ==

== ENCOUNTER 2024-09-13 09:46 | Outpatient (CLI) | payer MEDICARE, OTHER, SELFPAY ==
[2024-09-15 20:10] LABS: HPV Source Cervical; HPV, High Risk by TMA Not Detected
== END 2024-09-13 09:47 | disposition home or self-care (01) ==
PROVIDERS: PCP Family Medicine; Visit Provider Obstetrics & Gynecology
DX: Z12.4 Encounter for screening for malignant neoplasm of cervix (principal); Z11.51 Encounter for screening for human papillomavirus (HPV)
CPT/HCPCS: 87624; 87625; 88141; 88142

== ENCOUNTER 2024-10-04 14:13 | Outpatient (CLI) | payer MEDICARE, OTHER, SELFPAY ==
--- NOTE | 2024-10-04 15:00 | CRLHL7_ITS ---
For Patients: As a result of the Century Cures Act, medical imaging exams and procedure reports are released immediately into your electronic medical record. You may view this report before your referring provider. If you have questions, please contact your health care provider. DXA BONE MINERAL DENSITY STUDY Reason for exam: Osteopenia. Current height (in): 65. Weight (lb): 195. Menopause age: 54. Ethnicity: White. 1. Have you had a previous hip or vertebral fracture? No. 2. Have you had any fractures during your adult life which did not result from significant trauma (e.g., auto accident)? Yes. 3. Did either of your parents have a hip fracture? No. 4. Do you smoke? No. 5. Have you ever taken Glucocorticoids? Yes. 6. Do you have rheumatoid arthritis? No. 7. Do you have secondary osteoporosis? No. 8. Do you drink 3 or more alcoholic drinks per day? No. 9. Are you being treated for osteoporosis? No. 10. Have you ever taken any of the following medications: Actonel, Evista, Fosamax, Miacalcin, Reclast, Boniva, Forteo, HRT (i.e. estrogen/hormone therapy), Protelos, Prolia, Vitamin D, Calcium, other ??? please specify. ANSWER: Yes, vitamin D, HRT (i.e., estrogen/hormone therapy), and calcium. 11. Do you have any of the following medical conditions: Anorexia or bulimia, asthma or emphysema, end stage renal disease, hyperparathyroidism, any seizure disorders, cancer, inflammatory bowel diseases, hysterectomy, other ??? please specify. ANSWER: No. 12. What was your maximum height (inches)? 65. 13. Do you perform weight bearing exercise regularly? Yes. 14. Do you regularly consume dairy products? Yes. 15. Do you drink caffeinated beverages? Yes. 16. At what age did your period start? 16. 17. Are you premenopausal? No. 18. How many full-term pregnancies have you had? 2. 19. Have you ever missed your period for more than 6 months in a row (not including or menopause)? No. TECHNIQUE: Bone mineral density study was performed using the [employer]. FINDINGS: The results of the study expressed as bone mineral density (BMD) are as follows: Lumbar spine L1 to L4: BMD: 0.903 g/cm2. T-score: -1.3. Z-score: 0.7. Neck Left: BMD: 0.733 g/cm2. T-score: -1.0. Z-score: 0.6. Right: BMD: 0.717 g/cm2. T-score: -1.2. Z-score: 0.5. Total Left: BMD: 0.899 g/cm2. T-score: -0.3. Z-score: 1.0. Right: BMD: 0.896 g/cm2. T-score: -0.4. Z-score: 1.0. IMPRESSION: Osteopenia. *Comparison exams done prior to 08/2019 were performed on different unit, Squee. COMPARISON: Compared with scan of 09/09/2022, the bone mineral density has decreased by 1.0 percent at the spine and decreased by 1.9 percent at the hip. FRAX 10-year Fracture Risk Major Osteoporotic Fracture: 21 percent Hip Fracture: 2.4 percent Reported Risk Factors: [place] () Neck BMD=0.717, BMI=32.4, previous fracture, glucocorticoids Jack Adame M.D. Diagnostic Radiologist [email or web address] goins/Dictated by: Jack Adame MD @ 10/05/2024 9:01:00 AM (Electronically Signed)
== END 2024-10-04 14:14 | disposition home or self-care (01) ==
LOC: RAD 14:14
PROVIDERS: PCP Family Medicine; Visit Provider Family Medicine
DX: M85.851 Other specified disorders of bone density and structure, right thigh (principal); M85.89 Other specified disorders of bone density and structure, multiple sites
CPT/HCPCS: 77080

== ENCOUNTER 2024-10-06 12:45 | Outpatient (CLI) | payer MEDICARE, OTHER, SELFPAY ==
--- NOTE | 2024-10-06 13:20 | MM_ITS ---
Patient: JUAN SANABRIA Facility:?[facility] Patient ID:?[id number] Site Patient ID:?[id number]. Site :?[id number] Study:?XRay-Breast 3D Sam SCREENING-10/06/2024 1:19:35 PM Ordering Physician:Nivia Mabry Final Report: INDICATION: BILATERAL SCREENING MAMMOGRAM, ASYMPTOMATIC 69 Y/O FEMALE COMPARISON: 10/06/2023, 09/18/2022, 08/29/2021 TECHNIQUE: Digital mammogram in CC and MLO projections including computer-aided detection (CAD) and tomosynthesis. BREAST COMPOSITION: There are scattered areas of fibroglandular density. FINDINGS: No suspicious findings. ASSESSMENT: BI-RADS 1 Negative RECOMMENDATION: Annual screening mammogram. A lay language report of this examination will be provided to the patient. Dictated by: Afia Gillis MD @ 10/09/2024 10:38:22 Signed by:?Afia Gillis MD @10/09/2024 10:38:22 AM (Electronic Signature)
== END 2024-10-06 12:46 | disposition home or self-care (01) ==
PROVIDERS: PCP Family Medicine; Visit Provider Family Medicine
DX: Z12.31 Encounter for screening mammogram for malignant neoplasm of breast (principal)
CPT/HCPCS: 77063; 77067

== ENCOUNTER 2024-10-19 08:48 | Outpatient (CLI) | payer MEDICARE, OTHER, SELFPAY ==
--- NOTE | 2024-10-19 10:16 | P.ANES_ITS ---
Anesthesia Charges Start Date/Time Anesthesia Start Date: 10/19/24 Anesthesia Start Time: 09:55 Stop Date/Time Anesthesia Stop Date: 10/19/24 Anesthesia Stop Time: 10:15 Coding CPT Codes CPT Codes: ANES LWR INTST SCR COLSC - 65744 ([id number]) P2 - PATIENT W/MILD SYST DISEASE, QZ - RECEIVING ROOM CLERK SVC W/O HOME COMFORT ADVISOR BY
--- NOTE | 2024-10-19 10:16 | W.ANESCHARGE ---
Anesthesia Charges Start Date/Time Anesthesia Start Date: 10/19/24 Anesthesia Start Time: 09:55 Stop Date/Time Anesthesia Stop Date: 10/19/24 Anesthesia Stop Time: 10:15 Coding CPT Codes CPT Codes: ANES LWR INTST SCR COLSC - 76269 ([id number]) P2 - PATIENT W/MILD SYST DISEASE, QZ - POLITICAL DIRECTOR SVC W/O STREET DEPARTMENT DISPATCHER BY
== END 2024-10-19 08:49 | disposition home or self-care (01) ==
LOC: OP CLINIC 08:50
PROVIDERS: PCP Family Medicine; Visit Provider Internal Medicine
DX: Z12.11 Encounter for screening for malignant neoplasm of colon (principal); K64.8 Other hemorrhoids; K57.30 Diverticulosis of large intestine without perforation or abscess without bleeding
CPT/HCPCS: 00812; 45378